=== PATIENT | male | born 1975 | race Two or more races ===

== ENCOUNTER 2023-05-10 22:39 | Emergency (ER) | payer OTHER ==
[~2023-05-10] VITALS: Ht 175.3 cm; Wt 100.0 kg
[2023-05-10] MEDS ORDERED: LIDOCAINE/PF 1% 5 ML VIAL SQ ONE (23:45)
[2023-05-10] MEDS ORDERED: LIDOCAINE 1% 10 ML VIAL SQ ONE (23:45)
[2023-05-11] MEDS: PERTUSS(ACELL),DIPH,TET VAC/PF 0.5 ML SYRINGE IM. ONE ×2 (00:34→00:44)
[2023-05-11 01:24] LABS: FREE T4 (FREE THYROXINE) 1.1 ng/dL (0.76-1.46); THYROID STIMULATING HORMONE 2.85 uIU/mL (0.36-3.74)
[2023-05-11 01:31] VITALS: BP 123/83; PULSE 68; RESP 18; TEMP 98.3
== END 2023-05-11 01:18 | disposition home or self-care (01) ==
LOC: EMS 22:42
DX: S61.011A Laceration without foreign body of right thumb without damage to nail, initial encounter (principal); Z88.8 Allergy status to other drugs, medicaments and biological substances; W26.0XXA Contact with knife, initial encounter; Y93.89 Activity, other specified; Y92.89 Other specified places as the place of occurrence of the external cause; Y99.0 Civilian activity done for income or pay
CPT/HCPCS: 99283; 84439; 84443; 36415; 12001; J2001; 90715

== ENCOUNTER 2023-05-18 08:20 | Emergency (ER) | payer OTHER ==
[~2023-05-18] VITALS: Ht 175.3 cm; Wt 93.2 kg
[2023-05-18 08:23] VITALS: TEMP 97.8
[2023-05-18 08:51] VITALS: BP 128/82; PULSE 79; RESP 16
== END 2023-05-18 09:34 | disposition home or self-care (01) ==
LOC: EMS 08:22
DX: S61.011D Laceration without foreign body of right thumb without damage to nail, subsequent encounter (principal); Z48.02 Encounter for removal of sutures; X58.XXXD Exposure to other specified factors, subsequent encounter
CPT/HCPCS: 99281; Z7502